=== PATIENT | female | born 1985 | race Caucasian/White ===

== ENCOUNTER 2018-09-26 13:58 | Emergency (ER) | payer OTHER ==
--- OUTSIDE RECORDS SUMMARY | 2018-09-26 14:04 | XMS REPORT | Continuity of Care Document ---
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 [facility] [employer] Number: [id number] [id number] PayID: [id number] [place] [address] Family History Date Family Member(s) Observation Comments Father Hypertension Father Hypertension Paternal Grandfather Heart Problem Paternal Grandfather Heart Attack Paternal Grandfather Alcoholism Paternal Grandfather Alcoholism Paternal Grandmother Hypertension Paternal Grandmother Cancer, Breast Paternal Grandmother Depression Paternal Grandmother Cancer, Breast Maternal Grandfather Heart Problem Maternal Grandfather Heart Attack Maternal Grandfather Cancer, Colon Maternal Grandfather Cancer, Prostate Maternal Grandmother Diabetes Mellitus Type 2 Maternal Grandmother Diabetes Maternal Grandmother Hyperlipidemia Maternal Grandmother Hypothyroidism Maternal Grandmother Thyroid Disease Maternal Grandmother Cancer, Breast Maternal Grandmother Cancer, Breast Social History Type Date Description Comments Sex Unknown 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 Tobacco Use Start: Unknown Never Smoked Cigarettes ETOH Use Consumes 2-3 beers per week ETOH Use Occasionally consumes alcohol Recreational Drug Use Never Used Drugs Tobacco Use Start: Unknown Patient has never smoked Recreational Drug Use Formerly used Marijuana sporadically Smoking Status Reviewed: 09/20/18 Patient has never smoked Seat Belt/Car Seat Always uses seat belt Seat Belt/Car Seat Always uses seat belt Allergies, Adverse Reactions, Alerts Description No Known Drug Allergies Medications Active Medications SIG Qnty Indications Ordering Provider Date Sulfamethoxazole/Trime one tab twice 14tabs L03.011 Tung Nava DO thoprim DS daily x 7 days 800-160mg Tablets Diflucan 1 tab by mouth q 3tabs Bharath 08/11/2017 150mg Tablets week MD Yvette Ketoconazole apply to area 240ml Bharath 08/11/2017 2% Shampoo daily for 2 MD Yvette weeks then qmonth Lotrisone applt twice a 30gm Bharath 08/11/2017 1-0.05% Cream day to affected MD Yvette area Metronidazole apply to Unknown 0.75% Cream affected area every night at bedtime rosacea Levothyroxine Sodium 1 by mouth every Law,Parish REAVES day 25mcg Tablets History Medications Acetazolamide 1 by mouth twice a 22tabs Bharath 05/25/2018 - 125mg day start MD Yvette 09/20/2018 Tablets medication day before travel and discontinue 2-3 days after peak arrival or upon descent Vivotif 1 capsule every 4caps Bharath 05/25/2018 - Capsules DR other day x 4 MD Yvette 09/20/2018 doses, take with glass of cool water, finish 1 week before leaving [facility] Tri-Cyclen (28) as directed Unknown - 09/20/2018 0.18/0.215/0.25 mg-35 mcg Tablets Nexplanon Placed 04/2016 Unknown - 68mg Implant 09/20/2018 Immunizations CPT Code Status Date Vaccine Lot # [id number] Given 05/27/2018 Adacel (TdaP) [id number] Given 05/27/2018 Hep A Vac, Adult ([employer]) [id number] Vital Signs Date Vital Result Comment 09/20/2018 9:27am Weight 207.00 lb Height 67.25 inches 5'7.25" BP Systolic 120 mmHg BP Diastolic 68 mmHg Body Temperature 98.3 F Heart Rate 88 /min BMI (Body Mass Index) 32.2 kg/m2 08/11/2017 2:33pm Weight 199.25 lb Height 67.25 inches 5'7.25" BP Systolic 126 mmHg BP Diastolic 72 mmHg Heart Rate 68 /min BMI (Body Mass Index) 31.0 kg/m2 05/24/2015 7:50pm Weight 169.00 lb Height 66.2 inches 5'6.20" BP Systolic 162 mmHg BP Diastolic 107 mmHg Body Temperature 98.7 F Heart Rate 73 /min BMI (Body Mass Index) 27.1 kg/m2 Z68.27 A, 27.0-27.9 Respiratory Rate 16 /min Results Test Date Facility Test Result H/L Range Note Auto Diff 08/12/2017 [facility] Neutrophils, auto 59.5 % N 40.0-80.0 [address], [place] [id number] [phone] Neutrophils, absolute 5.1 K/mcL N 1.5-7.7 Lymphocytes, auto 32.7 % N 15.0-40.0 Lymphocytes, absolute 2.8 K/mcL N 1.5-4.0 Monocytes, auto 6.3 % N 0.0-12.0 Monocytes, absolute 0.5 K/mcL N 0.2-1.0 Eosinophils, auto 1.0 % N 0.0-5.0 Eosinophils, absolute 0.1 K/mcL N 0.0-0.3 Basophils, auto 0.5 % N 0.0-2.0 Basophils, absolute 0.0 K/mcL N 0.0-0.1 CBC With Auto Diff 08/12/2017 [facility] WBC 8.5 K/uL N 4.0-10.0 [address], [place] [id number] [phone] RBC 4.96 Million/mcL N 4.20-5.40 Hgb 14.9 gm/dL N 12.0-16.0 Hct 43.0 % N 36.0-47.0 MCV 86.7 fL N 82.0-98.0 MCH 30.0 pg N 26.0-33.0 MCHC 34.6 gm/dL N 32.0-36.0 RDW 12.8 % N 11.4-14.4 Platelet 218 K/mcL N 150-400 MPV 8.3 fL N 7.4-10.4 Urinalysis W/RFX Micro 08/12/2017 [facility] Ua Color Yellow NA Yellow No Culture [address], [place] [id number] [phone] Ua Clarity Hazy NA Clear Ua Specific [place] 1.023 N 1.005-1.025 Ua pH 5.0 N 5.0-8.0 Ua Protein Negative N Negative Ua Ketones Negative N Negative Ua Glucose Normal mg/dL N Normal Ua Bilirubin Negative N Negative 1 Ua Blood Negative N Negative 2 Ua Urobilinogen Normal mg/dL N Normal Ua Leukocyte Esterase Negative N Negative Ua Nitrite Negative N Negative Ua Ascorbic Acid Negative mg/dL N Negative 3 Z#Ua Microsopic 08/12/2017 [facility] Ua Squamous 13 /HPF High 0-5 Only [address] [facility] Epithelial Cells [place], [place] [id number] [phone] Ua Bacteria Few /HPF ABN None Seen Ua WBC <2 /HPF N 0-5 Ua RBC <2 /HPF N 0-5 Ua Mucous Trace /HPF NA Absent CMP 08/12/2017 [facility] Sodium Level 139 mmol/L N 136-144 [address], [place] [id number] [phone] Potassium Level 4.0 mmol/L N 3.6-5.1 Chloride 109 mmol/L N 98-110 Co2 22 mmol/L N 22-32 Agap 8 mEq/L N 4-14 Glucose Level. 107 mg/dL High 65-100 4 BUN 10 mg/dL N 8-23 Creatinine 0.70 mg/dL N 0.40-1.10 Calcium 9.0 mg/dL N 8.5-10.5 Total Protein 7.4 gm/dL N 6.4-8.2 Globulin 3.5 gm/dL N 1.5-3.8 Albumin Level 3.9 gm/dL N 3.3-4.8 Bilirubin Total. 0.8 mg/dL N 0.2-1.0 Ast 20 unit/L N 15-41 5 Alk Phos 82 unit/L N 45-117 Alt 28 unit/L N 14-54 6 Lipid Profile 08/12/2017 [facility] Cholesterol 124 mg/dL N 100-200 [address], [place] [id number] [phone] Triglyceride. 141 mg/dL N <=150 HDL 42 mg/dL N 40-60 LDL 54 mg/dL N 0-100 LDL/HDL 1.3 NA Chol/HDL Ratio 3.0 NA 7 Egfr 08/12/2017 [facility] GFR-Ana >60 mL/min/1.73m2 N >=60 8 [address], [place] [id number] [phone] GFR-Aa >60 mL/min/1.73m2 N >=60 Laboratory test finding 08/12/2017 [facility] T3 Free 3.2 pg/mL N 2.2-4.0 9 [address] [place] [address] [phone] Thyroid Stimulating Hormone 6.68 mcIU/mL High 0.36-3.74 10 Free T4 0.81 ng/dL N 0.76-1.70 11 1 If the dipstick bilirubin results are 'Presumptive Positive' the result will be confirmed with an Ictotest due to possible interference. 2 Intact and lysed red blood cells are both detected by this method. 3 The presence of ascorbic acid may interfere with the detection of blood, glucose, nitrite and bilirubin on the biochemical strip. Detectable limits of > 20mg/dL will reflex a microscopic exam. 4 If patient is taking either of these drugs, there has been a bias identified : Sulfasalazine may cause falsely decreased results Sulfaspyridine may cause falsely increased results 5 If patient is taking either of these drugs, there has been a bias identified : Sulfasalazine may cause falsely decreased results Sulfaspyridine may cause falsely decreased results 6 If patient is taking either of these drugs, there has been a bias identified : Sulfasalazine may cause falsely decreased results Sulfaspyridine may cause falsely decreased results 7 LDL <100 Optimal 100-129 Near Optimal 130-159 Borderline High 160-189 High >189 Very High CHOLESTEROL <200 Desirable 200-239 Borderline High >239 High >499 Very High TRIGLYCERIDES <150 Normal 150-199 Borderline High 200-499 High >499 Very High These are Lipid reference ranges based on ATP III Classifications. LDL is the primary target of therapy. Use of triglyceride concentration for risk assessment and the calculation of LDL concentration is only valid if the patient has fasted for at least 9 hours prior to testing. 8 * GFR-ANA has been calculated for Non- Americans, GFR-AA has been calculated for Americans. They are based on the standardized IDMS creatinine value and do not include the patient weight . If the patient's weight is not within average range, the GFR may be calculated by selecting the Cockcroft Gault calculation at: http:// www.kidney.org/professionals/KDOQI/gfr_calculator.cfm. This estimation applies to patients with stable renal function only. An average GFR of greater than or equal to 60 mL/min/1.73 square meters is suggestive of normal kidney function. An average GFR for 3 months or more of 30-59 is suggestive of stage 3 kidney disease. An average GFR for 3 months or more of 15-29 is suggestive of stage 4 kidney disease. An average GFR for 3 months or more of less than 15 is suggestive of stage 5 kidney disease. 9 While standard intake levels of biotin do not typically cause interference, higher levels may cause significant interference with this test. This interference can cause false highs and false lows, potentially leading to misdiagnosis. Patients may be unware they are taking pctpbo-[id number]-nazaymioixf levels of biotin, so it is important for physicians to be diligent in obtaining a full list of supplements for testing accuracy. For suspi cious or inconsistent patient results, biotin interference may be considered. 10 Patients taking Biotin supplements in excess of the daily recommended allowance, may have falsely elevated results due to interference of Biotin in the assay measurement. 11 While standard intake levels of biotin do not typically cause interference , higher levels may cause significant interference with this test. This interference can cause false highs and false lows, potentially leading to misdiagnosis. Patients may be unware they are taking [id number] levels of biotin, so it is important for physicians to be diligent in obtaining a full list of supplements for testing accuracy. For suspi cious or inconsistent patient results, biotin interference may be considered. Encounters Type Date Location Provider Dx Diagnosis Office Visit 09/20/2018 [facility] YENNI Johnson L03.011 Cellulitis of right 8:40a finger Z68.32 Body mass index (BMI) 32.0-32.9, adult [facility] Prabhakar Crawford MD general adult medical exam w abnormal findings R53.83 Other fatigue F32.9 Major depressive disorder, single episode, unspecified R21 Rash and other nonspecific skin eruption E07.9 Disorder of thyroid, unspecified Z68.31 Body mass index (BMI) 31.0-31.9, adult Office Visit 05/24/2015 7:45p [facility] James Tavera, R53.83 Other fatigue RPA-C Z68.27 Body mass index (BMI) 27.0-27.9, adult Plan of Treatment 09/20/2018 - Tracy Hummel, FNPL03.011 Cellulitis of right fingerNew Medication: Sulfamethoxazole/Trimethoprim DS 800-160 mg - one tab twice daily x 7 daysComments:Take abx as prescribedDaily yogurt or probioticssatl water soaksF/ U in 2-3 days if symptoms do not cgopituQ31.32 Body mass index (BMI) 32.0-32.9, adultComments:managed per PCP
[2018-09-26 14:17] VITALS: BP 136/95
--- NOTE | 2018-09-26 14:52 | UC ---
Hand/Wrist HPI - HPI Summary HPI Summary: 33-year-old female presents with complaints of pain, redness, and swelling of her distal right index finger. Patient was evaluated for the same approximately one week ago at an urgent care center in her hometown and had what sounds like an incision and drainage of a paronychia. She was placed on a seven-day course of Bactrim which she completed today. Patient states that she never had any improvement in symptoms and over the past 2-3 days has had increased redness, swelling, and pain. States last night she developed a fever of 101.6 F and she is complaining of general malaise. - History Of Current Complaint Chief Complaint: UCWounds Stated Complaint: FINGER INFECTION Time Seen by Provider: 09/26/18 14:42 Hx Last Menstrual Period: 09/26/18 Pain Intensity: 2 - Allergies/Home Medications Allergies/Adverse Reactions: Allergies Allergy/AdvReac Type Severity Reaction Status Date / Time No Known Allergies Allergy Verified 09/26/18 14:08 Home Medications: Home Medications Ibuprofen TAB* [Motrin TAB* 400 MG] 400 mg PO Q6H PRN 09/26/18 [History Confirmed 09/26/18] Levothyroxine TAB* [Synthroid TAB*] 50 mcg PO DAILY 09/26/18 [History Confirmed 09/26/18] Sulfamethox/Trimethoprim DS* [Bactrim DS 800/160 TAB*] 1 tab PO BID 09/26/18 [ History Confirmed 09/26/18] PMH/Surg Hx/FS Hx/Imm Hx Previously Healthy: Yes Endocrine History: Hypothyroidism - Surgical History Surgical History: None - Family History Known Family History: Positive: Non-Contributory - Social History Occupation: Employed Full-time Lives: With Family Alcohol Use: None Substance Use Type: None Smoking Status (MU): Never Smoked Tobacco Review of Systems All Other Systems Reviewed And Are Negative: Yes Constitutional: Positive: Fever, Chills, Other - Malaise Skin: Positive: Other - See HPI Respiratory: Positive: Negative Cardiovascular: Positive: Negative Gastrointestinal: Positive: Negative Genitourinary: Positive: Negative Motor: Negative: Weakness Neurovascular: Negative: Decreased Sensation Musculoskeletal: Negative: Arthralgia Neurological: Positive: Negative Is Patient Immunocompromised?: No Physical Exam - Summary Physical Exam Summary: GENERAL APPEARANCE: Well developed, well nourished, alert and cooperative, and appears to be in no acute distress. CARDIAC: Normal S1 and S2. No S3, S4 or murmurs. Rhythm is regular. There is no peripheral edema, cyanosis or pallor. Extremities are warm and well perfused. Capillary refill is less than 2 seconds. Peripheral pulses intact. LUNGS: Clear to auscultation without rales, rhonchi, wheezing or diminished breath sounds. ABDOMEN: Positive bowel sounds. Soft, nondistended, nontender. No guarding or rebound. No masses or hepatosplenomegally. MUSKULOSKELETAL: ROM intact to all extremities. No joint erythema or tenderness. Normal muscular development. Normal gait. EXTREMITIES: Erythema and tenderness to the proximal nailfold of the right index finger with fluctuance and collection of pus beneath the proximal fingernail. Circulation and sensation intact. SKIN: Skin normal color, texture and turgor. Triage Information Reviewed: Yes Vital Signs: Initial Vital Signs Temp 99.5 F 09/26/18 14:10 Pulse 109 09/26/18 14:10 Resp 18 09/26/18 14:10 BP 136/95 09/26/18 14:10 Pulse Ox 99 09/26/18 14:10 Vital Signs Reviewed: Yes Hand/Wrist Course/Dx - Course Course Of Treatment: 33-year-old female presents with complaints of pain, redness, and swelling of her distal right index finger. Patient was evaluated for the same approximately one week ago at an urgent care center in her hometown and had what sounds like an incision and drainage of a paronychia. She was placed on a seven-day course of Bactrim which she completed today. Patient states that she never had any improvement in symptoms and over the past 2-3 days has had increased redness, swelling, and pain. States last night she developed a fever of 101.6 F and she is complaining of general malaise. Patient was afebrile however she was mildly tachycardic otherwise vital signs stable. She had erythema and tenderness to the proximal nailfold of the right index finger with fluctuance and collection of pus beneath the proximal fingernail. Circulation and sensation intact. I discussed with the patient that I believe that she needs to have another incision and drainage performed however with her reports of high fever and general malaise I'm recommending that she be evaluated emergency room where lab work could be obtained if deemed appropriate. Patient is agreeable to this plan and is electing to transport via private vehicle. - Differential Dx/Diagnosis Differential Diagnosis/HQI/PQRI: Cellulitis, Paronychia, Other - Sepsis Provider Diagnosis: Paronychia of right index finger Discharge - Sign-Out/Discharge Documenting (check all that apply): Patient Departure All imaging exams completed and their final reports reviewed: No Studies - Discharge Plan Condition: Stable Disposition: HOME-RECOMMEND TO ED Patient Education Materials: Paronychia (ED) Referrals: No Primary Care Phys,NOPCP [Primary Care Provider] - Additional Instructions: You have an infection of the right index finger called a paronychia. With the reports of high fever I am recommending that she be evaluated in the emergency room at this time. Go directly to the emergency room from here. - Billing Disposition and Condition Condition: STABLE Disposition: Home-Recommend to ED
== END 2018-09-26 14:59 | disposition home health service (06) ==
LOC: UCEAST 13:58
DX: L03.011 Cellulitis of right finger (principal)
CPT/HCPCS: 99212; G0463

== ENCOUNTER 2018-09-26 15:18 | Emergency (ER) | payer OTHER ==
--- NOTE | 2018-09-26 17:42 | ED ---
Skin Complaint - History of Current Complaint Chief Complaint: EDRashSkinAbscess Time Seen by Provider: 09/26/18 16:51 Stated Complaint: FINGER INFECTION AND FEVER PT Hx Last Menstrual Period: 09/26/18 Pain Intensity: 2 - Allergy/Home Medications Allergies/Adverse Reactions: Allergies Allergy/AdvReac Type Severity Reaction Status Date / Time No Known Allergies Allergy Verified 09/26/18 14:08 PMH/Surg Hx/FS Hx/Imm Hx Endocrine/Hematology History: Reports: Hx Thyroid Disease - Devin's Infectious Disease History: No Infectious Disease History: Denies: Traveled Outside the [place] in Last 30 Days - Family History Known Family History: Positive: Non-Contributory - Social History Alcohol Use: None Substance Use Type: Reports: None Smoking Status (MU): Never Smoked Tobacco Physical Exam Vital Signs On Initial Exam: Initial Vitals Temp Pulse Resp BP Pulse Ox 100.1 F 124 18 164/112 99 09/26/18 15:23 09/26/18 15:23 09/26/18 15:23 09/26/18 15:23 09/26/18 15:23 Diagnostics - Vital Signs Vital Signs Temp Pulse Resp BP Pulse Ox 09/26/18 15:23 100.1 F 124 18 164/112 99 - Laboratory Lab Statement: Any lab studies that have been ordered have been reviewed, and results considered in the medical decision making process. Course/Dx - Diagnoses Provider Diagnoses: Subungual abscess Discharge - Sign-Out/Discharge Documenting (check all that apply): Patient Departure Patient Received Moderate/Deep Sedation with Procedure: No - Discharge Plan Condition: Stable Disposition: HOME Patient Education Materials: Abscess (ED) Referrals: Bharath Crawford MD [Primary Care Provider] - Additional Instructions: You may wash right hand with warm running water and soap. Keep wound clean and dry and intact. Continue to press on nail occasionally to facilitate drainage. Take antibiotics as directed. Return to the ED for any new or worsening symptoms. - Billing Disposition and Condition Condition: STABLE Disposition: Home
[2018-09-26] MEDS ORDERED: Bacitracin OINTMENT* 0.5% 0.5 oz TUBE TOPICAL ONE (17:43)
[2018-09-26 18:02] LABS: Hematocrit 40 % (35-47); Hemoglobin 13.5 g/dL (12.0-16.0); Mean Corpuscular HGB Conc 34 g/dL (31-36); Mean Corpuscular Hemoglobin 30 pg (27-31); Mean Corpuscular Volume 87 fL (80-97); Mean Platelet Volume 7.9 fL (7.4-10.4); Platelet Count 163 10^3/uL (150-450); Red Blood Count 4.53 10^6 /uL (3.70-4.87); Red Cell Distribution Width 13 % (10-15); White Blood Count 2.7 10^3/uL (3.5-10.8)
[2018-09-26 18:14] VITALS: BP 125/78
[2018-09-26 18:19] LABS: HCG Pregnancy < 0.60 mIU/mL
[2018-09-26 18:23] LABS: ALT 39 U/L (7-52); AST 37 U/L (13-39); Albumin 4.3 g/dL (3.2-5.2); Albumin/Globulin Ratio 1.5 (1-3); Alkaline Phosphatase 70 U/L (34-104); Anion Gap 8 mmol/L (2-11); BUN/Creatinine Ratio 7.6 (8-20); Blood Urea Nitrogen 7 mg/dL (6-24); C Reactive Protein 65.81 mg/L (<8.01); CO2 Carbon Dioxide 24 mmol/L (22-32); Chloride 104 mmol/L (101-111); EGFR African American 85.6 (>60); EGFR Non-African American 70.7 (>60); Globulin 2.9 g/dL (2-4); Glucose 118 mg/dL (70-100); Potassium 3.6 mmol/L (3.5-5.0); Sodium 136 mmol/L (135-145); Total Protein 7.2 g/dL (6.4-8.9)
== END 2018-09-26 17:40 | disposition home or self-care (01) ==
LOC: ED 15:18
DX: L03.113 Cellulitis of right upper limb (principal); E06.3 Autoimmune thyroiditis
CPT/HCPCS: 36415; 80053; 83605; 84702; 85027; 86140; 87040; 99282